=== PATIENT | female | born 1965 | race Caucasian/White ===

== ENCOUNTER 2023-01-17 10:33 | Inpatient (IN) | payer OTHER ==
[~2023-01-17] VITALS: Ht 157.5 cm; Wt 42.6 kg
[2023-01-17] MEDS ORDERED: KETOROLAC TROMETHAMINE 15 MG INJ IVP ONE ×2 (11:45→17:15)
[2023-01-17] MEDS ORDERED: METOCLOPRAMIDE HCL 10 MG/2 ML VIAL IV ONE (11:45)
[2023-01-17] MEDS ORDERED: KETOROLAC TROMETHAMINE 15 MG INJ ONE ×2 (11:59→17:02)
[2023-01-17] MEDS ORDERED: METOCLOPRAMIDE HCL 10 MG/2 ML VIAL ONE (11:59)
[2023-01-17 12:00] LABS: BASOPHILS # (AUTO) 0.2 K/UL (0.0-0.2); BASOPHILS % (AUTO) 0.8 % (0.0-2.0); EOSINOPHILS % (AUTO) 0.1 % (0.0-7.0); HEMATOCRIT 38.9 % (31.2-41.9); HEMOGLOBIN 12.8 g/dL (10.9-14.3); LYMPHOCYTES # (AUTO) 0.6 K/uL (0.8-4.8); LYMPHOCYTES % (AUTO) 2.2 % (20.5-51.5); MEAN CORPUSCULAR HEMOGLOBIN 30.9 uug (24.7-32.8); MEAN CORPUSCULAR HGB CONC 33 g/dL (32.3-35.6); MEAN CORPUSCULAR VOLUME 94.2 fL (75.5-95.3); MONOCYTES # (AUTO) 1.1 K/uL (0.1-1.30); MONOCYTES % (AUTO) 4.1 % (0.0-11.0); NEUTROPHILS # (AUTO) 24.1 K/uL (1.8-8.9); NEUTROPHILS % (AUTO) 92.8 % (38.5-71.5); PLATELET COUNT (AUTO) 191 K/uL (179-408); RED BLOOD CELL COUNT(AUTO) 4.13 MIL/uL (3.63-4.92)
[2023-01-17 12:01] LABS: CALCIUM 9.3 mg/dL (8.5-10.1); CARBON DIOXIDE 23 mmol/L (21-32); CHLORIDE 98 mmol/L (98-107); CREATININE 2.3 mg/dL (0.6-1.3); GLUCOSE 141 mg/dL (74-106); SODIUM SERUM 132 mmol/L (136-145); UREA NITROGEN, BLOOD 31 mg/dL (7-18)
[2023-01-17 12:05] LABS: *BILIRUBIN,URIN NEGATIVE (NEGATIVE); *BLOOD, URINE 2+ (NEGATIVE); *CLARITY,URINE SLIGHTLY CLOUDY (CLEAR); *COLOR,URINE YELLOW (YELLOW); *KETONES,URINE NEGATIVE (NEGATIVE); *PROTEIN,URINE 2+ (NEGATIVE); *UROBILINOGEN,URINE 0.2 E.U./dl (NORMAL); LEUKOCYTE ESTERASE ,URINE 2+ (NEGATIVE); NITRITE, URINE POSITIVE (NEGATIVE); PH,URINE 5.5 (5.0-8.0); UGLUCOSE NEGATIVE (NEGATIVE)
[2023-01-17 12:10] LABS: ALANINE AMINOTRANSFERASE 15 U/L (14-59); ALBUMIN 3.5 g/dL (3.4-5.0); ALKALINE PHOSPHATASE 86 U/L (50-136); ASPARTATE AMINOTRANSFERASE 25 U/L (15-37); BILIRUBIN,DIRECT 0.1 mg/dL (0.0-0.2); DIFFERENTIAL COMMENT 1; LIPASE 47 U/L (73-393); TOTAL PROTEIN, SERUM 6.9 g/dL (6.4-8.2)
[2023-01-17 12:15] LABS: POTASSIUM 4.8 mmol/L (3.5-5.1)
[2023-01-17 12:42] LABS: BACTERIA,URINE MANY /HPF (NONE SEEN); WBC,URINE 50-80 /HPF (0-3)
[2023-01-17 12:43] LABS: SQUAMOUS EPITHELIAL CELL,UR MODERATE /HPF (NONE SEEN)
[2023-01-17] MEDS ORDERED: CEFTRIAXONE /D5W 50ML IVPB **ER PYXIS IV ONE (12:45)
[2023-01-17] MEDS ORDERED: IV NORMAL SALINE 1000 ML BAG IV ONE (12:45)
[2023-01-17] MEDS ORDERED: CEFTRIAXONE 2 G in IV DEXTROSE 5% 100 ML IV ONE (12:45)
[2023-01-17 18:26] VITALS: BP 102/57; TEMP 97.9; O2SAT 97
[2023-01-17] MEDS ORDERED: CEFTRIAXONE 1 G in IV DEXTROSE 5% 50 ML IV SCH (19:00)
[2023-01-17] MEDS: TAMSULOSIN HCL 0.4 MG CAP.SR.24H PO SCH ×2 (20:34→21:00)
[2023-01-17] MEDS: MORPHINE SULFATE 2 MG/1 ML DISP.SYRIN IV PRN ×2 (20:35→23:51)
[2023-01-17] MEDS ORDERED: KETOROLAC TROMETHAMINE 30 MG INJ IVP SCH (21:00)
[2023-01-17 21:28] VITALS: BP 118/61; TEMP 98.2; O2SAT 99
[2023-01-17] MEDS: IV NS 1000 ML 1,000 ML IV PRN (21:41)
[2023-01-18] MEDS ORDERED: KETOROLAC TROMETHAMINE 15 MG INJ IVP SCH
[2023-01-18] MEDS: TEMAZEPAM 15 MG CAPSULE PO PRN (00:40)
[2023-01-18 05:42] VITALS: BP 104/63; TEMP 98.6; O2SAT 99
[2023-01-18] MEDS: PANTOPRAZOLE SODIUM 40 MG TABLET.DR PO SCH (06:14)
[2023-01-18] MEDS: MORPHINE SULFATE 2 MG/1 ML DISP.SYRIN IV PRN ×2 (06:26→16:41)
[2023-01-18] MEDS: IV NS 1000 ML 1,000 ML IV PRN ×2 (07:09→20:01)
[2023-01-18 07:18] LABS: BASOPHILS % (AUTO) 0.2 % (0.0-2.0); HEMATOCRIT 32.9 % (31.2-41.9); HEMOGLOBIN 11.2 g/dL (10.9-14.3); LYMPHOCYTES # (AUTO) 0.4 K/uL (0.8-4.8); LYMPHOCYTES % (AUTO) 2.8 % (20.5-51.5); MEAN CORPUSCULAR HEMOGLOBIN 31.9 uug (24.7-32.8); MEAN CORPUSCULAR HGB CONC 34 g/dL (32.3-35.6); MONOCYTES # (AUTO) 0.6 K/uL (0.1-1.30); MONOCYTES % (AUTO) 4.1 % (0.0-11.0); NEUTROPHILS # (AUTO) 13.2 K/uL (1.8-8.9); NEUTROPHILS % (AUTO) 92.9 % (38.5-71.5); PLATELET COUNT (AUTO) 122 K/uL (179-408); RED CELL DISTRIBUTION WIDTH 14.3 % (12.3-17.7); WHITE BLOOD COUNT (AUTO) 14.3 K/uL (3.8-11.8)
[2023-01-18 07:31] LABS: ALBUMIN 2.5 g/dL (3.4-5.0); BILIRUBIN,TOTAL 0.4 mg/dL (0.2-1.0); CALCIUM 7.8 mg/dL (8.5-10.1); CREATININE 2.4 mg/dL (0.6-1.3); MAGNESIUM 1.5 mg/dL (1.8-2.4); PHOSPHOROUS 2.8 mg/dL (2.5-4.9); POTASSIUM 4.1 mmol/L (3.5-5.1); TOTAL PROTEIN, SERUM 5.7 g/dL (6.4-8.2); URIC ACID 4.9 mg/dL (2.6-6.0)
[2023-01-18 08:07] LABS: DIFFERENTIAL COMMENT 1
[2023-01-18] MEDS: NICOTINE 21 MG/24HR PATCH TD SCH (09:00)
[2023-01-18] MEDS: TAMSULOSIN HCL 0.4 MG CAP.SR.24H PO SCH ×2 (09:18→20:01)
[2023-01-18] MEDS ORDERED: MAGNESIUM SULFATE/D5W 100 ML IV SCH (11:30)
[2023-01-18] MEDS: KETOROLAC TROMETHAMINE 15 MG INJ IVP PRN ×2 (11:37→20:01)
[2023-01-18 11:39] VITALS: BP 104/62; TEMP 98.6; O2SAT 95
[2023-01-18] MEDS: CEFTRIAXONE 1 G in IV DEXTROSE 5% 50 ML IV SCH (13:20)
[2023-01-18 16:01] VITALS: BP 123/67; TEMP 98.7; O2SAT 97
[2023-01-18] MEDS: MORPHINE SULFATE 4 MG/1 ML DISP.SYRIN IV PRN (17:45)
[2023-01-18 21:37] VITALS: BP 108/61; TEMP 97.8; O2SAT 100
[2023-01-19] MEDS: TEMAZEPAM 15 MG CAPSULE PO PRN ×2 (00:15→21:25)
[2023-01-19] MEDS: KETOROLAC TROMETHAMINE 15 MG INJ IVP PRN (05:32)
[2023-01-19] MEDS: MORPHINE SULFATE 4 MG/1 ML DISP.SYRIN IV PRN ×3 (05:38→20:22)
[2023-01-19] MEDS: IV NS 1000 ML 1,000 ML IV PRN ×2 (05:42→16:30)
[2023-01-19] MEDS: ACETAMINOPHEN 325 MG TABLET PO PRN (05:47)
[2023-01-19 05:51] VITALS: BP 111/66; TEMP 98.2; O2SAT 100
[2023-01-19] MEDS: PANTOPRAZOLE SODIUM 40 MG TABLET.DR PO SCH (06:06)
[2023-01-19 07:14] LABS: BASOPHILS # (AUTO) 0.1 K/UL (0.0-0.2); BASOPHILS % (AUTO) 0.7 % (0.0-2.0); EOSINOPHILS % (AUTO) 0.3 % (0.0-7.0); HEMATOCRIT 28.9 % (31.2-41.9); LYMPHOCYTES # (AUTO) 0.5 K/uL (0.8-4.8); LYMPHOCYTES % (AUTO) 4.8 % (20.5-51.5); MEAN CORPUSCULAR HEMOGLOBIN 32.2 uug (24.7-32.8); MEAN CORPUSCULAR HGB CONC 35 g/dL (32.3-35.6); MEAN CORPUSCULAR VOLUME 93.2 fL (75.5-95.3); MONOCYTES # (AUTO) 0.7 K/uL (0.1-1.30); NEUTROPHILS # (AUTO) 9.6 K/uL (1.8-8.9); NEUTROPHILS % (AUTO) 88.2 % (38.5-71.5); PLATELET COUNT (AUTO) 86 K/uL (179-408); RED CELL DISTRIBUTION WIDTH 14.3 % (12.3-17.7); WHITE BLOOD COUNT (AUTO) 10.9 K/uL (3.8-11.8)
[2023-01-19 07:22] LABS: CREATININE 2.2 mg/dL (0.6-1.3); PHOSPHOROUS 2.5 mg/dL (2.5-4.9); POTASSIUM 4.6 mmol/L (3.5-5.1)
[2023-01-19 07:23] LABS: DIFFERENTIAL COMMENT 1
[2023-01-19] MEDS: NICOTINE 21 MG/24HR PATCH TD SCH (09:00)
[2023-01-19] MEDS: TAMSULOSIN HCL 0.4 MG CAP.SR.24H PO SCH ×2 (09:20→20:21)
[2023-01-19 11:14] VITALS: BP 110/72; TEMP 98.2; O2SAT 95
[2023-01-19] MEDS ORDERED: NALOXONE 2 MG/2 ML SYRINGE IV PRN (12:30)
[2023-01-19] MEDS ORDERED: MIDAZOLAM HCL 10 MG/2 ML VIAL IV PRN (12:30)
[2023-01-19] MEDS ORDERED: FLUMAZENIL 0.5 MG/5 ML VIAL IVP PRN (12:30)
[2023-01-19] MEDS ORDERED: FENTANYL CITRATE 250 MCG/5 ML AMPUL IV PRN (12:30)
[2023-01-19] MEDS: CEFTRIAXONE 1 G in IV DEXTROSE 5% 50 ML IV SCH (12:31)
[2023-01-19 15:55] VITALS: BP 135/54; TEMP 98.4; O2SAT 95
[2023-01-19] MEDS: CEFEPIME HCL 1 G in IV DEXTROSE 5% 50 ML IV SCH (16:30)
[2023-01-19 20:20] VITALS: BP 115/56; TEMP 98.4; O2SAT 97
[2023-01-20 04:20] VITALS: BP 104/62; TEMP 100; O2SAT 98
[2023-01-20] MEDS: PANTOPRAZOLE SODIUM 40 MG TABLET.DR PO SCH (06:12)
[2023-01-20] MEDS: IV NS 1000 ML 1,000 ML IV PRN ×2 (06:13→16:10)
[2023-01-20 06:51] LABS: BASOPHILS % (AUTO) 0.4 % (0.0-2.0); EOSINOPHILS # (AUTO) 0.1 K/uL (0.0-0.7); HEMATOCRIT 28.2 % (31.2-41.9); HEMOGLOBIN 9.5 g/dL (10.9-14.3); LYMPHOCYTES # (AUTO) 0.8 K/uL (0.8-4.8); MEAN CORPUSCULAR HEMOGLOBIN 31.8 uug (24.7-32.8); MEAN CORPUSCULAR HGB CONC 34 g/dL (32.3-35.6); MEAN CORPUSCULAR VOLUME 93.9 fL (75.5-95.3); MONOCYTES % (AUTO) 9.1 % (0.0-11.0); NEUTROPHILS # (AUTO) 9.1 K/uL (1.8-8.9); NEUTROPHILS % (AUTO) 82.5 % (38.5-71.5); PLATELET COUNT (AUTO) 78 K/uL (179-408); RED BLOOD CELL COUNT(AUTO) 3.01 MIL/uL (3.63-4.92); RED CELL DISTRIBUTION WIDTH 14.4 % (12.3-17.7)
[2023-01-20 07:06] LABS: DIFFERENTIAL COMMENT 1
[2023-01-20 08:03] LABS: CREATININE 1.6 mg/dL (0.6-1.3); MAGNESIUM 1.8 mg/dL (1.8-2.4); PHOSPHOROUS 2.4 mg/dL (2.5-4.9); POTASSIUM 4.2 mmol/L (3.5-5.1)
[2023-01-20] MEDS: ACETAMINOPHEN 325 MG TABLET PO PRN ×2 (09:09→16:11)
[2023-01-20] MEDS: TAMSULOSIN HCL 0.4 MG CAP.SR.24H PO SCH ×2 (09:10→20:23)
[2023-01-20] MEDS: ENSURE ENLIVE (VAN) 240 ML LIQUID PO SCH (09:10)
[2023-01-20] MEDS: NICOTINE 21 MG/24HR PATCH TD SCH (09:10)
[2023-01-20 11:44] VITALS: TEMP 97.9
[2023-01-20 15:25] VITALS: TEMP 97.2
[2023-01-20] MEDS ORDERED: NEUTRA PHOS PACKET PO SCH (15:30)
[2023-01-20] MEDS: CEFEPIME HCL 1 G in IV DEXTROSE 5% 50 ML IV SCH (16:10)
[2023-01-20] MEDS: MORPHINE SULFATE 4 MG/1 ML DISP.SYRIN IV PRN (20:24)
[2023-01-20] MEDS: TEMAZEPAM 15 MG CAPSULE PO PRN (21:30)
[2023-01-20 22:09] VITALS: BP 108/55; TEMP 99.1; O2SAT 99
[2023-01-21 00:31] LABS: *CLARITY,URINE TURBID (CLEAR); *COLOR,URINE LIGHT YELLOW (YELLOW)
[2023-01-21 00:32] LABS: *BILIRUBIN,URIN NEGATIVE (NEGATIVE); *KETONES,URINE NEGATIVE (NEGATIVE); UGLUCOSE NEGATIVE (NEGATIVE)
[2023-01-21 00:33] LABS: *BLOOD, URINE LARGE (NEGATIVE); *PROTEIN,URINE 3+ (NEGATIVE)
[2023-01-21 00:34] LABS: *UROBILINOGEN,URINE 0.2 E.U./dl (NORMAL); LEUKOCYTE ESTERASE ,URINE MODERATE (NEGATIVE); NITRITE, URINE NEGATIVE (NEGATIVE)
[2023-01-21 00:44] LABS: *CREATININE,URINE 108.4 mg/dL (30-125); *URINE TOTAL PROTEIN RANDOM 371.4 mg/dL (<150/24HR)
[2023-01-21 00:45] LABS: BACTERIA,URINE MANY /HPF (NONE SEEN); RBC,URINE TNTC /HPF (0-3); WBC,URINE TNTC /HPF (0-3)
[2023-01-21 00:46] LABS: SQUAMOUS EPITHELIAL CELL,UR FEW /HPF (NONE SEEN)
[2023-01-21 05:05] VITALS: BP 119/66; TEMP 98.2; O2SAT 98
[2023-01-21] MEDS: PANTOPRAZOLE SODIUM 40 MG TABLET.DR PO SCH (06:04)
[2023-01-21 06:47] LABS: BASOPHILS % (AUTO) 0.3 % (0.0-2.0); EOSINOPHILS # (AUTO) 0.1 K/uL (0.0-0.7); EOSINOPHILS % (AUTO) 0.8 % (0.0-7.0); HEMATOCRIT 28.3 % (31.2-41.9); HEMOGLOBIN 9.4 g/dL (10.9-14.3); LYMPHOCYTES # (AUTO) 0.7 K/uL (0.8-4.8); MEAN CORPUSCULAR HGB CONC 33 g/dL (32.3-35.6); MONOCYTES # (AUTO) 1.3 K/uL (0.1-1.30); MONOCYTES % (AUTO) 11.3 % (0.0-11.0); NEUTROPHILS # (AUTO) 9.5 K/uL (1.8-8.9); NEUTROPHILS % (AUTO) 81.6 % (38.5-71.5); PLATELET COUNT (AUTO) 94 K/uL (179-408); RED BLOOD CELL COUNT(AUTO) 3.04 MIL/uL (3.63-4.92); RED CELL DISTRIBUTION WIDTH 15.1 % (12.3-17.7); WHITE BLOOD COUNT (AUTO) 11.7 K/uL (3.8-11.8)
[2023-01-21 06:54] LABS: DIFFERENTIAL COMMENT 1
[2023-01-21 06:58] LABS: CREATININE 1.3 mg/dL (0.6-1.3); POTASSIUM 3.9 mmol/L (3.5-5.1)
[2023-01-21 07:02] LABS: MAGNESIUM 1.6 mg/dL (1.8-2.4); PHOSPHOROUS 2.6 mg/dL (2.5-4.9)
[2023-01-21 08:00] VITALS: BP 118/57; TEMP 98.3; O2SAT 94
[2023-01-21] MEDS: TAMSULOSIN HCL 0.4 MG CAP.SR.24H PO SCH ×2 (08:56→20:16)
[2023-01-21] MEDS: ENSURE ENLIVE (VAN) 240 ML LIQUID PO SCH ×3 (08:56→17:26)
[2023-01-21] MEDS: NICOTINE 21 MG/24HR PATCH TD SCH (08:56)
[2023-01-21] MEDS: ACETAMINOPHEN 325 MG TABLET PO PRN ×2 (08:57→20:16)
[2023-01-21 12:06] VITALS: TEMP 97.6
[2023-01-21] MEDS ORDERED: CEFTRIAXONE 1 G VIAL IM SCH (13:00)
[2023-01-21] MEDS: ONDANSETRON 4 MG/2 ML VIAL IV PRN (13:57)
[2023-01-21] MEDS: MORPHINE SULFATE 4 MG/1 ML DISP.SYRIN IV PRN (13:57)
[2023-01-21] MEDS ORDERED: SENNOSIDES 1 TABLET PO ONE (14:15)
[2023-01-21] MEDS: SENNOSIDES 1 TABLET PO SCH ×2 (14:34→20:16)
[2023-01-21 15:50] VITALS: TEMP 97.6
[2023-01-21] MEDS: CEFTRIAXONE 1 G in IV DEXTROSE 5% 50 ML IV SCH (16:18)
[2023-01-21] MEDS: DOCUSATE SODIUM 100 MG CAPSULE PO SCH (20:16)
[2023-01-21] MEDS: TEMAZEPAM 15 MG CAPSULE PO PRN (23:21)
[2023-01-22] MEDS: ACETAMINOPHEN 325 MG TABLET PO PRN (06:08)
[2023-01-22] MEDS: PANTOPRAZOLE SODIUM 40 MG TABLET.DR PO SCH (06:08)
[2023-01-22 06:17] LABS: BASOPHILS # (AUTO) 0.1 K/UL (0.0-0.2); BASOPHILS % (AUTO) 0.8 % (0.0-2.0); EOSINOPHILS # (AUTO) 0.1 K/uL (0.0-0.7); EOSINOPHILS % (AUTO) 0.8 % (0.0-7.0); HEMATOCRIT 28.5 % (31.2-41.9); HEMOGLOBIN 9.7 g/dL (10.9-14.3); LYMPHOCYTES # (AUTO) 1.4 K/uL (0.8-4.8); LYMPHOCYTES % (AUTO) 9.7 % (20.5-51.5); MEAN CORPUSCULAR HEMOGLOBIN 31.8 uug (24.7-32.8); MEAN CORPUSCULAR HGB CONC 34 g/dL (32.3-35.6); MEAN CORPUSCULAR VOLUME 93.4 fL (75.5-95.3); MONOCYTES # (AUTO) 2.4 K/uL (0.1-1.30); MONOCYTES % (AUTO) 16.5 % (0.0-11.0); NEUTROPHILS # (AUTO) 10.4 K/uL (1.8-8.9); NEUTROPHILS % (AUTO) 72.2 % (38.5-71.5); PLATELET COUNT (AUTO) 125 K/uL (179-408); RED BLOOD CELL COUNT(AUTO) 3.05 MIL/uL (3.63-4.92); RED CELL DISTRIBUTION WIDTH 14.7 % (12.3-17.7); WHITE BLOOD COUNT (AUTO) 14.4 K/uL (3.8-11.8)
[2023-01-22 06:26] LABS: DIFFERENTIAL COMMENT 1
[2023-01-22 06:31] LABS: CALCIUM 8.3 mg/dL (8.5-10.1); CREATININE 1.3 mg/dL (0.6-1.3); POTASSIUM 3.8 mmol/L (3.5-5.1)
[2023-01-22] MEDS: NICOTINE 21 MG/24HR PATCH TD SCH (09:00)
[2023-01-22] MEDS: TAMSULOSIN HCL 0.4 MG CAP.SR.24H PO SCH ×2 (09:13→20:45)
[2023-01-22] MEDS: DOCUSATE SODIUM 100 MG CAPSULE PO SCH ×2 (09:13→20:46)
[2023-01-22] MEDS: ENSURE ENLIVE (VAN) 240 ML LIQUID PO SCH ×3 (09:14→16:08)
[2023-01-22 09:21] LABS: BAND % (MANUAL) 2 % (0-10); LYMPHOCYTES % (MANUAL) 14 % (20-40); MONOCYTES % (MANUAL) 18 % (2-10); NEUTROPHILS % (MANUAL) 66 % (42-75)
[2023-01-22 09:22] LABS: PLATELET ESTIMATE DECREASED
[2023-01-22] MEDS: MORPHINE SULFATE 4 MG/1 ML DISP.SYRIN IV PRN ×3 (09:22→21:23)
[2023-01-22 15:49] VITALS: TEMP 97.6
[2023-01-22 16:00] VITALS: BP 108/58; TEMP 97.6; O2SAT 98
[2023-01-22] MEDS: CEFTRIAXONE 1 G in IV DEXTROSE 5% 50 ML IV SCH (16:07)
[2023-01-22] MEDS: ONDANSETRON 4 MG/2 ML VIAL IV PRN (16:54)
[2023-01-22 20:08] VITALS: BP 101/56; TEMP 99.4; O2SAT 94
[2023-01-22] MEDS: SENNOSIDES 1 TABLET PO SCH (20:45)
[2023-01-22] MEDS: TEMAZEPAM 15 MG CAPSULE PO PRN (23:23)
[2023-01-23] MEDS: MORPHINE SULFATE 4 MG/1 ML DISP.SYRIN IV PRN ×4 (03:21→22:42)
[2023-01-23 04:30] VITALS: BP 103/57; TEMP 99.8; O2SAT 94
[2023-01-23] MEDS: ACETAMINOPHEN 325 MG TABLET PO PRN (04:41)
[2023-01-23] MEDS: PANTOPRAZOLE SODIUM 40 MG TABLET.DR PO SCH (06:15)
[2023-01-23 07:18] LABS: BASOPHILS # (AUTO) 0.1 K/UL (0.0-0.2); BASOPHILS % (AUTO) 0.4 % (0.0-2.0); EOSINOPHILS # (AUTO) 0.1 K/uL (0.0-0.7); HEMATOCRIT 27.2 % (31.2-41.9); HEMOGLOBIN 9.2 g/dL (10.9-14.3); LYMPHOCYTES # (AUTO) 1.3 K/uL (0.8-4.8); LYMPHOCYTES % (AUTO) 9.2 % (20.5-51.5); MEAN CORPUSCULAR HEMOGLOBIN 31.4 uug (24.7-32.8); MEAN CORPUSCULAR HGB CONC 34 g/dL (32.3-35.6); MEAN CORPUSCULAR VOLUME 92.6 fL (75.5-95.3); MONOCYTES # (AUTO) 2.3 K/uL (0.1-1.30); NEUTROPHILS # (AUTO) 10.5 K/uL (1.8-8.9); NEUTROPHILS % (AUTO) 73.4 % (38.5-71.5); PLATELET COUNT (AUTO) 152 K/uL (179-408); RED BLOOD CELL COUNT(AUTO) 2.94 MIL/uL (3.63-4.92); RED CELL DISTRIBUTION WIDTH 14.9 % (12.3-17.7); WHITE BLOOD COUNT (AUTO) 14.3 K/uL (3.8-11.8)
[2023-01-23 07:26] LABS: DIFFERENTIAL COMMENT 1
[2023-01-23 07:37] LABS: CALCIUM 8.1 mg/dL (8.5-10.1); CREATININE 1.3 mg/dL (0.6-1.3); POTASSIUM 4.1 mmol/L (3.5-5.1)
[2023-01-23 08:45] LABS: EOSINOPHILS % (MANUAL) 1 % (0-8); LYMPHOCYTES % (MANUAL) 12 % (20-40); MONOCYTES % (MANUAL) 8 % (2-10); NEUTROPHILS % (MANUAL) 79 % (42-75); PLATELET ESTIMATE ADEQUATE
[2023-01-23] MEDS: NICOTINE 21 MG/24HR PATCH TD SCH (09:00)
[2023-01-23] MEDS: TAMSULOSIN HCL 0.4 MG CAP.SR.24H PO SCH ×2 (09:09→20:18)
[2023-01-23] MEDS: DOCUSATE SODIUM 100 MG CAPSULE PO SCH ×2 (09:09→20:18)
[2023-01-23] MEDS: ENSURE ENLIVE (VAN) 240 ML LIQUID PO SCH ×3 (09:10→16:57)
[2023-01-23 11:30] VITALS: BP 92/50; TEMP 99.2; O2SAT 95
[2023-01-23] MEDS: CEFTRIAXONE 1 G in IV DEXTROSE 5% 50 ML IV SCH (15:39)
[2023-01-23 16:00] VITALS: BP 105/59; TEMP 98.9; O2SAT 94
[2023-01-23 16:57] VITALS: BP 105/59; TEMP 98.9; O2SAT 94
[2023-01-23] MEDS: ONDANSETRON 4 MG/2 ML VIAL IV PRN (17:11)
[2023-01-23] MEDS: SENNOSIDES 1 TABLET PO SCH (20:18)
[2023-01-23 20:21] VITALS: BP 98/48; TEMP 98.6; O2SAT 94
[2023-01-23 21:08] VITALS: O2SAT 94
[2023-01-23] MEDS: ZOLPIDEM 5 MG TABLET PO PRN (23:57)
[2023-01-24 04:09] VITALS: BP 104/60; TEMP 98.5; O2SAT 95
[2023-01-24] MEDS: MORPHINE SULFATE 4 MG/1 ML DISP.SYRIN IV PRN ×3 (04:32→20:15)
[2023-01-24] MEDS: PANTOPRAZOLE SODIUM 40 MG TABLET.DR PO SCH (06:18)
[2023-01-24 07:09] LABS: BASOPHILS # (AUTO) 0.1 K/UL (0.0-0.2); BASOPHILS % (AUTO) 0.4 % (0.0-2.0); EOSINOPHILS # (AUTO) 0.1 K/uL (0.0-0.7); EOSINOPHILS % (AUTO) 0.9 % (0.0-7.0); HEMATOCRIT 26.4 % (31.2-41.9); HEMOGLOBIN 8.9 g/dL (10.9-14.3); LYMPHOCYTES # (AUTO) 1.9 K/uL (0.8-4.8); LYMPHOCYTES % (AUTO) 12.5 % (20.5-51.5); MEAN CORPUSCULAR HEMOGLOBIN 31.5 uug (24.7-32.8); MEAN CORPUSCULAR HGB CONC 34 g/dL (32.3-35.6); MEAN CORPUSCULAR VOLUME 93.3 fL (75.5-95.3); MONOCYTES # (AUTO) 2.1 K/uL (0.1-1.30); MONOCYTES % (AUTO) 14.2 % (0.0-11.0); NEUTROPHILS # (AUTO) 10.8 K/uL (1.8-8.9); PLATELET COUNT (AUTO) 209 K/uL (179-408); RED BLOOD CELL COUNT(AUTO) 2.83 MIL/uL (3.63-4.92); RED CELL DISTRIBUTION WIDTH 14.8 % (12.3-17.7); WHITE BLOOD COUNT (AUTO) 15.1 K/uL (3.8-11.8)
[2023-01-24 07:31] LABS: DIFFERENTIAL COMMENT 1
[2023-01-24 07:36] LABS: CALCIUM 8.2 mg/dL (8.5-10.1); CREATININE 1.1 mg/dL (0.6-1.3); POTASSIUM 4.1 mmol/L (3.5-5.1)
[2023-01-24] MEDS: DOCUSATE SODIUM 100 MG CAPSULE PO SCH ×2 (08:38→20:17)
[2023-01-24] MEDS: TAMSULOSIN HCL 0.4 MG CAP.SR.24H PO SCH ×2 (08:38→20:17)
[2023-01-24] MEDS: NICOTINE 21 MG/24HR PATCH TD SCH (08:39)
[2023-01-24] MEDS: ENSURE ENLIVE (VAN) 240 ML LIQUID PO SCH ×3 (08:39→16:29)
[2023-01-24 11:49] VITALS: BP 87/49; TEMP 98.7; O2SAT 97
[2023-01-24 12:15] VITALS: BP 93/51
[2023-01-24] MEDS: CEFTRIAXONE 1 G in IV DEXTROSE 5% 50 ML IV SCH (15:27)
[2023-01-24 16:00] VITALS: BP 113/52; TEMP 98.9; O2SAT 97
[2023-01-24] MEDS: SENNOSIDES 1 TABLET PO SCH (20:18)
[2023-01-24 20:30] VITALS: BP 105/61; TEMP 98.9; O2SAT 95
[2023-01-24] MEDS: ZOLPIDEM 5 MG TABLET PO PRN (23:32)
[2023-01-25] MEDS: MORPHINE SULFATE 4 MG/1 ML DISP.SYRIN IV PRN ×4 (01:02→21:41)
[2023-01-25] MEDS: PANTOPRAZOLE SODIUM 40 MG TABLET.DR PO SCH (06:09)
[2023-01-25 06:44] VITALS: BP 104/60; TEMP 98.9; O2SAT 95
[2023-01-25 07:47] LABS: CALCIUM 8.3 mg/dL (8.5-10.1)
[2023-01-25 07:50] LABS: MAGNESIUM 1.9 mg/dL (1.8-2.4); PHOSPHOROUS 4.1 mg/dL (2.5-4.9)
[2023-01-25 07:56] LABS: BASOPHILS # (AUTO) 0.1 K/UL (0.0-0.2); BASOPHILS % (AUTO) 0.4 % (0.0-2.0); EOSINOPHILS # (AUTO) 0.1 K/uL (0.0-0.7); EOSINOPHILS % (AUTO) 0.8 % (0.0-7.0); HEMATOCRIT 28.8 % (31.2-41.9); HEMOGLOBIN 9.8 g/dL (10.9-14.3); LYMPHOCYTES # (AUTO) 2.1 K/uL (0.8-4.8); LYMPHOCYTES % (AUTO) 15.2 % (20.5-51.5); MEAN CORPUSCULAR HEMOGLOBIN 31.7 uug (24.7-32.8); MEAN CORPUSCULAR HGB CONC 34 g/dL (32.3-35.6); MEAN CORPUSCULAR VOLUME 92.9 fL (75.5-95.3); MONOCYTES # (AUTO) 1.7 K/uL (0.1-1.30); MONOCYTES % (AUTO) 12.5 % (0.0-11.0); NEUTROPHILS # (AUTO) 9.8 K/uL (1.8-8.9); NEUTROPHILS % (AUTO) 71.1 % (38.5-71.5); PLATELET COUNT (AUTO) 288 K/uL (179-408); RED CELL DISTRIBUTION WIDTH 14.7 % (12.3-17.7); WHITE BLOOD COUNT (AUTO) 13.7 K/uL (3.8-11.8)
[2023-01-25 08:06] LABS: DIFFERENTIAL COMMENT 1
[2023-01-25 08:28] VITALS: BP 106/56; TEMP 98; O2SAT 94
[2023-01-25] MEDS: NICOTINE 21 MG/24HR PATCH TD SCH ×2 (08:29→08:41)
[2023-01-25] MEDS: DOCUSATE SODIUM 100 MG CAPSULE PO SCH ×2 (08:30→20:32)
[2023-01-25] MEDS: TAMSULOSIN HCL 0.4 MG CAP.SR.24H PO SCH ×2 (08:30→20:32)
[2023-01-25] MEDS: ENSURE ENLIVE (VAN) 240 ML LIQUID PO SCH ×3 (08:42→17:38)
[2023-01-25 11:06] VITALS: BP 100/52; TEMP 98.4; O2SAT 97
[2023-01-25 15:25] VITALS: BP 100/49; TEMP 98.2; O2SAT 97
[2023-01-25] MEDS: CEFTRIAXONE 1 G in IV DEXTROSE 5% 50 ML IV SCH (16:00)
[2023-01-25 20:00] VITALS: BP 104/72; TEMP 99; O2SAT 95
[2023-01-25] MEDS: SENNOSIDES 1 TABLET PO SCH (20:33)
[2023-01-25] MEDS: ZOLPIDEM 5 MG TABLET PO PRN (22:50)
[2023-01-26] MEDS: MORPHINE SULFATE 4 MG/1 ML DISP.SYRIN IV PRN (03:53)
[2023-01-26 04:00] VITALS: BP 103/46; TEMP 98.3; O2SAT 95
[2023-01-26] MEDS: PANTOPRAZOLE SODIUM 40 MG TABLET.DR PO SCH (06:34)
[2023-01-26 06:53] LABS: BASOPHILS # (AUTO) 0.1 K/UL (0.0-0.2); BASOPHILS % (AUTO) 0.4 % (0.0-2.0); EOSINOPHILS # (AUTO) 0.1 K/uL (0.0-0.7); EOSINOPHILS % (AUTO) 0.7 % (0.0-7.0); HEMATOCRIT 26.1 % (31.2-41.9); HEMOGLOBIN 8.8 g/dL (10.9-14.3); LYMPHOCYTES # (AUTO) 1.8 K/uL (0.8-4.8); LYMPHOCYTES % (AUTO) 12.5 % (20.5-51.5); MEAN CORPUSCULAR HEMOGLOBIN 31.3 uug (24.7-32.8); MEAN CORPUSCULAR HGB CONC 34 g/dL (32.3-35.6); MEAN CORPUSCULAR VOLUME 93.2 fL (75.5-95.3); MONOCYTES # (AUTO) 1.6 K/uL (0.1-1.30); MONOCYTES % (AUTO) 11.8 % (0.0-11.0); NEUTROPHILS # (AUTO) 10.5 K/uL (1.8-8.9); NEUTROPHILS % (AUTO) 74.6 % (38.5-71.5); PLATELET COUNT (AUTO) 321 K/uL (179-408); RED CELL DISTRIBUTION WIDTH 14.7 % (12.3-17.7)
[2023-01-26 06:59] LABS: CALCIUM 7.9 mg/dL (8.5-10.1); POTASSIUM 4.3 mmol/L (3.5-5.1)
[2023-01-26 07:07] LABS: DIFFERENTIAL COMMENT 1
[2023-01-26 08:00] VITALS: BP 90/47; TEMP 97.7; O2SAT 94
[2023-01-26] MEDS: NICOTINE 21 MG/24HR PATCH TD SCH (09:00)
[2023-01-26] MEDS: DOCUSATE SODIUM 100 MG CAPSULE PO SCH ×2 (09:49→20:43)
[2023-01-26] MEDS: ENSURE ENLIVE (VAN) 240 ML LIQUID PO SCH ×3 (09:49→17:31)
[2023-01-26] MEDS: TAMSULOSIN HCL 0.4 MG CAP.SR.24H PO SCH ×2 (09:49→20:43)
[2023-01-26 11:02] VITALS: BP 106/55; TEMP 98.4; O2SAT 94
[2023-01-26] MEDS: HYDROCODONE/APAP 5-325MG TABLET PO PRN ×2 (12:03→20:44)
[2023-01-26 15:12] VITALS: BP 95/45; TEMP 98.2; O2SAT 95
[2023-01-26] MEDS: CEFTRIAXONE 1 G in IV DEXTROSE 5% 50 ML IV SCH (15:52)
[2023-01-26] MEDS ORDERED: HYDR-3972 PO (16:39)
[2023-01-26 20:00] VITALS: BP 120/54; TEMP 98; O2SAT 93
[2023-01-26] MEDS: SENNOSIDES 1 TABLET PO SCH (20:43)
[2023-01-26] MEDS: ACETAMINOPHEN 325 MG TABLET PO PRN (22:49)
[2023-01-26] MEDS: ZOLPIDEM 5 MG TABLET PO PRN (22:49)
[2023-01-27 04:00] VITALS: BP 118/57; TEMP 98.1; O2SAT 94
[2023-01-27] MEDS: HYDROCODONE/APAP 5-325MG TABLET PO PRN (04:37)
[2023-01-27] MEDS: PANTOPRAZOLE SODIUM 40 MG TABLET.DR PO SCH (06:09)
[2023-01-27 08:00] VITALS: BP 106/53; TEMP 97.9; O2SAT 94
[2023-01-27] MEDS: NICOTINE 21 MG/24HR PATCH TD SCH (09:00)
[2023-01-27] MEDS: TAMSULOSIN HCL 0.4 MG CAP.SR.24H PO SCH (09:01)
[2023-01-27] MEDS: DOCUSATE SODIUM 100 MG CAPSULE PO SCH (09:01)
[2023-01-27] MEDS: ENSURE ENLIVE (VAN) 240 ML LIQUID PO SCH ×2 (09:02→13:45)
[2023-01-27] MEDS ORDERED: HYDR-3972 PO (12:28)
[2023-01-27] MEDS ORDERED: ZOLP10TA2 PO (12:28)
[2023-01-27] MEDS: CEFTRIAXONE 1 G in IV DEXTROSE 5% 50 ML IV SCH (13:45)
[2023-01-27 15:17] VITALS: BP 107/41; TEMP 97.8; O2SAT 96
== END 2023-01-27 16:00 | disposition home health service (06) | DRG 710 ==
LOC: ER 10:33 → MEDSURG3 17:54
PROVIDERS: ADMIT Internal Medicine; ATTEND Nurse Practitioner Acute Care
PROC: 0T133JD Bypass Right Kidney Pelvis to Cutaneous with Synthetic Substitute, Percutaneous Approach (ICD-10-PCS; principal; 2023-01-19)
PROC: B547ZZA Ultrasonography of Left Subclavian Vein, Guidance (ICD-10-PCS; 2023-01-26)
PROC: 05H633Z Insertion of Infusion Device into Left Subclavian Vein, Percutaneous Approach (ICD-10-PCS; 2023-01-26)
DX: A41.9 Sepsis, unspecified organism (principal); N17.0 Acute kidney failure with tubular necrosis; D69.6 Thrombocytopenia, unspecified; J18.9 Pneumonia, unspecified organism; E46 Unspecified protein-calorie malnutrition; E87.1 Hypo-osmolality and hyponatremia; N13.6 Pyonephrosis; F17.210 Nicotine dependence, cigarettes, uncomplicated; D64.9 Anemia, unspecified; Z20.822 Contact with and (suspected) exposure to COVID-19; N39.0 Urinary tract infection, site not specified; Z87.440 Personal history of urinary (tract) infections; Z68.1 Body mass index [BMI] 19.9 or less, adult; R73.9 Hyperglycemia, unspecified; B96.20 Unspecified Escherichia coli [E. coli] as the cause of diseases classified elsewhere; Z87.442 Personal history of urinary calculi
CPT/HCPCS: 36415; 70030-TC; 71045; 74150; 83605; 83690; 83735; 84100; 84300; 84484; 84550; 85025; 85730; 87040; 87077; 88108-TC; 88312-TC; 93005; A4606; A4663; C2627; G0378; J0692; J0696; J1885; J2250; J2270; J2405; J2765; J3010; J3475; J7040

== ENCOUNTER 2023-02-07 14:33 | Emergency (ER) | payer OTHER ==
[~2023-02-07] VITALS: Ht 157.5 cm; Wt 42.6 kg
[~2023-02-07 14:33] MED LIST: HYDR-3972 PO; ZOLP10TA2 PO
[2023-02-07 15:00] VITALS: O2SAT 97
== END 2023-02-07 15:36 | disposition home or self-care (01) ==
LOC: ER 14:33
DX: Z45.2 Encounter for adjustment and management of vascular access device (principal); F17.210 Nicotine dependence, cigarettes, uncomplicated; Z79.899 Other long term (current) drug therapy
CPT/HCPCS: A4606; A4663

== ENCOUNTER 2023-03-14 11:01 | Emergency (ER) | payer OTHER ==
[~2023-03-14] VITALS: Ht 160 cm; Wt 40.8 kg
[2023-03-14 12:46] VITALS: BP 136/85; TEMP 98.2; O2SAT 98
== END 2023-03-14 12:47 | disposition home or self-care (01) ==
LOC: ER 11:01
DX: T83.012A Breakdown (mechanical) of nephrostomy catheter, initial encounter (principal); F17.210 Nicotine dependence, cigarettes, uncomplicated; Z79.899 Other long term (current) drug therapy
CPT/HCPCS: A4606; A4663

== ENCOUNTER 2023-05-13 14:12 | Emergency (ER) | payer OTHER ==
[~2023-05-13] VITALS: Ht 154.9 cm; Wt 44.5 kg
[~2023-05-13 14:12] MED LIST changes: +CIPR-262 PO
[2023-05-13 15:21] LABS: BASOPHILS # (AUTO) 0.3 K/UL (0.0-0.2); BASOPHILS % (AUTO) 4.5 % (0.0-2.0); EOSINOPHILS # (AUTO) 0.3 K/uL (0.0-0.7); EOSINOPHILS % (AUTO) 3.6 % (0.0-7.0); HEMATOCRIT 40.7 % (31.2-41.9); HEMOGLOBIN 13.7 g/dL (10.9-14.3); LYMPHOCYTES # (AUTO) 2.3 K/uL (0.8-4.8); LYMPHOCYTES % (AUTO) 30.1 % (20.5-51.5); MEAN CORPUSCULAR HEMOGLOBIN 31.3 uug (24.7-32.8); MEAN CORPUSCULAR HGB CONC 34 g/dL (32.3-35.6); MEAN CORPUSCULAR VOLUME 93.3 fL (75.5-95.3); MONOCYTES # (AUTO) 0.5 K/uL (0.1-1.30); NEUTROPHILS # (AUTO) 4.2 K/uL (1.8-8.9); NEUTROPHILS % (AUTO) 54.8 % (38.5-71.5); PLATELET COUNT (AUTO) 248 K/uL (179-408); RED BLOOD CELL COUNT(AUTO) 4.36 MIL/uL (3.63-4.92); RED CELL DISTRIBUTION WIDTH 13.7 % (12.3-17.7); WHITE BLOOD COUNT (AUTO) 7.7 K/uL (3.8-11.8)
[2023-05-13 15:28] LABS: *BILIRUBIN,URIN NEGATIVE (NEGATIVE); *BLOOD, URINE 2+ (NEGATIVE); *CLARITY,URINE CLOUDY (CLEAR); *COLOR,URINE YELLOW (YELLOW); *KETONES,URINE NEGATIVE (NEGATIVE); *PROTEIN,URINE 2+ (NEGATIVE); *UROBILINOGEN,URINE 0.2 E.U./dl (NORMAL); LEUKOCYTE ESTERASE ,URINE 3+ (NEGATIVE); NITRITE, URINE POSITIVE (NEGATIVE); UGLUCOSE NEGATIVE (NEGATIVE)
[2023-05-13 15:29] LABS: CREATININE 0.8 mg/dL (0.6-1.3)
[2023-05-13 15:34] LABS: CALCIUM 8.6 mg/dL (8.5-10.1); DIFFERENTIAL COMMENT 1
[2023-05-13] MEDS ORDERED: CEFTRIAXONE /D5W 50ML IVPB **ER PYXIS IV ONE (15:53)
[2023-05-13] MEDS: CEFTRIAXONE 1 G in IV DEXTROSE 5% 50 ML IV ONE (15:59)
[2023-05-13 16:15] LABS: BACTERIA,URINE MODERATE /HPF (NONE SEEN); RBC,URINE 50-80 /HPF (0-3); SQUAMOUS EPITHELIAL CELL,UR FEW /HPF (NONE SEEN); WBC,URINE TNTC /HPF (0-3)
[2023-05-13] MEDS: GENTAMICIN SULFATE 20 MG/2 ML VIAL IV ONE (17:17)
[2023-05-13] MEDS: GENTAMICIN SULFATE INJ 70 MG in IV DEXTROSE 5% 50 ML IV ONE (17:17)
[2023-05-13 17:18] LABS: POTASSIUM 4.2 mmol/L (3.5-5.1)
[2023-05-13] MEDS ORDERED: CEFI400C4 PO (17:56)
[2023-05-13] MEDS ORDERED: QUET300T2 PO (17:56)
[2023-05-13 18:26] VITALS: O2SAT 98
== END 2023-05-13 18:28 | disposition home or self-care (01) ==
LOC: ER 14:16
DX: N10 Acute pyelonephritis (principal); F17.200 Nicotine dependence, unspecified, uncomplicated; Z79.899 Other long term (current) drug therapy; Z60.2 Problems related to living alone
CPT/HCPCS: 99284; 96365; 96367; 80048; 81001; 85025; 36415; 96376; 87086; J0696; J1580; A4606; A4663